=== PATIENT | female | born 1985 | race Caucasian/White ===

== ENCOUNTER → 2019-08-30 | Day surgery (SDC) | payer OTHER ==
[~2019-08-30] MED LIST: CYAN50008 PO; DILT180C2 PO; DULO20CA50 PO; GABA600T7 PO; HYDR-2145 PO; HYOS0.1222 PO; IV RINGERS SOLUTION,LACTATED 1,000 ML IV SCH; LOSA25TA PO; MV-M1TAB7 PO; ONDANSETRON PF 4 MG/2 ML VIAL. IV PRN; PROPOFOL 10,000 MCG/ML (20ML) VIAL IV ONE; ZOLP6.252 PO
[2019-08-30 09:55] VITALS: BP 117/68
--- NOTE | 2019-08-31 17:06 | PATHOLOGY ---
[facility] Accession Number: [id number] . 01 Material submitted: . PART A: duodenum - RANDOM DUODENUM BIOPSY PART B: stomach - RANDOM GASTRIC BIOPSY PART C: colon - RANDOM COLON BIOPSY . 02 Diagnosis: A. Duodenal and small intestine mucosa, random duodenal biopsies: - No significant pathologic abnormalities. . B. Gastric antral and gastric body mucosa, random gastric biopsies: - Very mild chronic gastritis. . C. Colonic mucosa, random colon biopsies: - No significant pathologic abnormalities. (JPM:mary alice; 08/31/2019) [facility] 08/31/2019 0944 Local . 02 Comment: Sections of the random duodenal biopsy reveal segments of duodenal and small intestine mucosa. Where best oriented, the mucosal villi show no sprue-like changes or significant inflammatory changes. . Sections of the random gastric biopsy reveal segments of gastric antral and gastric body mucosa. The gastric body mucosa shows focal superficial mucosal congestion and minimal chronic inflammation. The gastric antral mucosa shows congestion and very mild chronic inflammation. A properly controlled immunoperoxidase stain for Helicobacter is negative for Helicobacter organisms. . Sections of the random colon biopsy reveal multiple segments of colonic mucosa containing multiple, focally hyperplastic, mucosal-associated lymphoid aggregates. There is no evidence of a chronic destructive colitis, lymphocytic colitis, or collagenous colitis. (JPM:amry alice; 08/31/2019) . . Special stain performed: Immunoperoxidase stain for Helicobacter on B1 . Electronically signed: . Sherif Samuel MD, Pathologist NPI- [id number] . 01 Gross description: . A. The specimen is received in formalin labeled "Tullius, Patricia, random duodenum DX celiac" and consists of multiple fragments of cortes-brown tissue measuring 1.7 x 0.6 x 0.2 cm in aggregate which are entirely submitted in A1. . B. The specimen is received in formalin labeled "Tullius, Patricia, random gastric" and consists of multiple fragments of cortes brown tissue measuring 2.1 x 0.5 x 0.2 cm in aggregate which are entirely submitted in B1. . C. The specimen is received in formalin labeled "Tullius, Patricia, random colon BX" and consists of multiple fragments of cortes-brown tissue measuring 1.9 x 0.6 x 0.2 cm in aggregate which are entirely submitted in C1. (DAVONTE; 08/30/2019) JFQ/JFQ 08/30/2019 1742 Local . 02 Pathologist provided ICD-10: K29.50, R19.7 . 02 CPT . 630857, 471153, 439044, [id number] Specimen Comment: A courtesy copy of this report has been sent to [phone], [phone]- Specimen Comment: [id number] Specimen Comment: Report sent to / DR COURTNEY Performed at: 01 [facility] [address], [place] [id number] MD Nestor Cowan MD Phone: [phone] Performed at: 02 [facility] [address] [place], [place] [id number] MD Sherif Samuel MD Phone: [phone]
== END | disposition home or self-care (01) ==
LOC: SURG 07:31
PROVIDERS: ATTEND Internal Medicine Gastroenterology
DX: K52.9 Noninfective gastroenteritis and colitis, unspecified (principal); K21.9 Gastro-esophageal reflux disease without esophagitis; K29.50 Unspecified chronic gastritis without bleeding; K63.89 Other specified diseases of intestine; E66.9 Obesity, unspecified; E78.00 Pure hypercholesterolemia, unspecified; I10 Essential (primary) hypertension; Z79.899 Other long term (current) drug therapy; Z90.710 Acquired absence of both cervix and uterus; Z90.49 Acquired absence of other specified parts of digestive tract; Z87.442 Personal history of urinary calculi; Z68.30 Body mass index [BMI] 30.0-30.9, adult
CPT/HCPCS: 43239; 45380; 88305; 88342; J2704; U0003-CS

== ENCOUNTER → 2021-02-05 | Outpatient (CLI) | payer OTHER ==
[2019-08-30 09:55] VITALS: BP 117/68
[~2021-02-05] MED LIST changes: -CYAN50008 PO; +CYAN50009 PO; -IV RINGERS SOLUTION,LACTATED 1,000 ML IV SCH; -ONDANSETRON PF 4 MG/2 ML VIAL. IV PRN; -PROPOFOL 10,000 MCG/ML (20ML) VIAL IV ONE
--- NOTE | 2021-02-05 09:57 | RAD ---
CT MAXILLOFACIAL WITHOUT CONTRAST DATE: 02/05/2021 9:20 AM INDICATION: RECURRENT SINUSITIS . COMPARISON: None. TECHNIQUE: CT images of the paranasal sinuses were obtained without intravenous contrast. Coronal and sagittal reformatted images were performed at a separate workstation and reviewed. One or more of th e following dose reduction techniques were utilized: Automated exposure control (AEC), Adjustment of mA and/or kV according to patient size, Use of iterative reconstruction technique such as ASiR, CT sc an done according to ALARA and image gently/image wisely FINDINGS: The maxillary, ethmoid, sphenoid, and frontal sinuses are clear. No air-fluid levels. No significant mucoperiosteal thickening. The osteomeatal units are patent. Bilateral maddison bullosa. No significan t nasal septal deviation. The visualized osseous structures are otherwise normal. The visualized orbits and globes are normal. The visualized brain parenchyma is normal in attenuation. IMPRESSION: No evidence of inflammatory sinonasal disease. Electronically signed by: Kamran Rabago MD (02/05/2021 9:55 AM) [facility]
== END ==
LOC: CT 08:54
PROVIDERS: ATTEND Otolaryngology
DX: J32.9 Chronic sinusitis, unspecified (principal)
CPT/HCPCS: 70486

== ENCOUNTER → 2021-05-15 | Outpatient (CLI) | payer OTHER ==
[2019-08-30 09:55] VITALS: BP 117/68
[~2021-05-15] MED LIST changes: +IOHEXOL 350 MG/ML 100 ML VIAL. ONE
--- NOTE | 2021-05-15 10:53 | RAD ---
CTA chest with contrast dated 05/15/2021. COMPARISON: None. Clinical data indication: Cough. FINDINGS: Contiguous axial imaging the chest performed following the intravenous administration of 100 cc Omnip aque 350. Study was performed as dedicated PE protocol with thin cut coronal MIPS 3-D reconstruction. One or more of the following individualized dose reduction techniques were utilized for this examinat ion: 1. Automated exposure control 2. Adjustment of the mA and/or kV according to patient size 3. Use of iterative reconstruction technique. FINDINGS: Contrast bolus is adequate. No evidence of central, lobar or segmental pulmonary embolus. Subsegmenta l branches not well evaluated. Heart size is mildly enlarged. No pericardial effusion. No mediastinal, hilar or axillary lymphadenop athy. Thyroid gland unremarkable. Central airways are patent. Mild patchy groundglass opacity throughout both lungs, nonspecific. No co nsolidation or pleural effusion. No pneumothorax. Images of the upper abdomen are unremarkable. Scattered diverticula throughout the colon. No acute steve ny abnormality. Mild multilevel spondylosis. IMPRESSION: 1. No evidence of central, lobar or segmental pulmonary embolus. 2. Mild patchy groundglass opacity throughout both lungs, nonspecific. 3. Mild cardiomegaly. 4. Diverticulosis. Electronically signed by: Milad Avila MD (05/15/2021 10:50 AM) [facility]
== END ==
LOC: CT 09:37
PROVIDERS: ATTEND Internal Medicine
DX: I51.7 Cardiomegaly (principal); K57.30 Diverticulosis of large intestine without perforation or abscess without bleeding; M47.819 Spondylosis without myelopathy or radiculopathy, site unspecified
CPT/HCPCS: 71275; Q9967

== ENCOUNTER → 2021-05-20 | Outpatient (CLI) | payer OTHER ==
[2019-08-30 09:55] VITALS: BP 117/68
[~2021-05-20] MED LIST changes: -IOHEXOL 350 MG/ML 100 ML VIAL. ONE
--- NOTE | 2021-05-20 10:09 | RAD ---
EXAM: Abdomen and pelvis CT without intravenous contrast. HISTORY: Gross hematuria. Right flank pain. TECHNIQUE: Computed tomographic images of the abdomen and pelvis were obtained without contrast. Mult iplanar reformatting was performed. *One or more of the following individualized dose reduction techniques were utilized for this examina tion: 1. Automated exposure control. 2. Adjustment of the mA and/or kV according to patient size. 3. Use of iterative reconstruction technique. COMPARISON: None. FINDINGS: Evaluation of the lower thorax demonstrates no infiltrate or pleural effusion. No hepatic l esion is seen. The gallbladder is surgically absent. The pancreas, spleen and adrenal glands are unre markable. The stomach is unremarkable. The appendix is prominent in caliber, measuring 6 mm. There ar e no secondary findings to suggest acute appendicitis. There is colonic diverticulosis. There is no diverticulitis. There is a 4 mm nonobstructing stone wit hin the superior left kidney. There is no obstructing renal or ureteral stone. There is no hydronephr osis. The bladder is unremarkable. There are few left pelvic phleboliths. The uterus is absent. The o varies are unremarkable. The aorta is normal in caliber. There is no lymphadenopathy. There is no acu te or suspicious osseous finding. IMPRESSION: 1. 4 mm nonobstructing left renal stone. 2. Colonic diverticulosis. Electronically signed by: Xochitl Ibrahim MD (05/20/2021 10:07 AM) [id number]
== END ==
LOC: CT 08:36
PROVIDERS: ATTEND Internal Medicine
DX: N20.0 Calculus of kidney (principal); K57.30 Diverticulosis of large intestine without perforation or abscess without bleeding; R31.9 Hematuria, unspecified; Z90.49 Acquired absence of other specified parts of digestive tract; Z90.710 Acquired absence of both cervix and uterus
CPT/HCPCS: 74176

== ENCOUNTER → 2021-07-01 | Outpatient (CLI) | payer OTHER ==
[2019-08-30 09:55] VITALS: BP 117/68
[~2021-07-01] MED LIST changes: +IOHEXOL 350 MG/ML 100 ML VIAL. IV ONE
--- NOTE | 2021-07-01 10:27 | RAD ---
EXAM: Abdomen and pelvis CT with and without intravenous contrast. HISTORY: Hematuria. TECHNIQUE: Computed tomographic images of the abdomen and pelvis were obtained prior to and following the administration of intravenous contrast. Multiplanar reformatting was performed. *One or more of the following individualized dose reduction techniques were utilized for this examina tion: 1. Automated exposure control. 2. Adjustment of the mA and/or kV according to patient size. 3. Use of iterative reconstruction technique. COMPARISON: 05/20/2021. FINDINGS: Evaluation of the lower thorax demonstrates no infiltrate or pleural effusion. There is a s mall focus of fatty infiltration of the liver along the falciform ligament. No suspicious hepatic les ion is seen. The gallbladder is surgically absent. The pancreas, spleen and adrenal glands are unrema rkable. There is a stable 3 mm nonobstructing stone within the upper mid zone of the left kidney. There is no hydronephrosis. There is a 5 mm simple cyst within the lateral upper mid zone of the left kidney. No suspicious solid renal lesion is seen. There is a slightly asymmetrically prominent right renal jarett ecting system, likely due to the hydration status of the patient. No urothelial lesion is seen. The b ladder is unremarkable. The uterus is absent. The ovaries are unremarkable. There is a prominent appendix caliber, stable in appearance. There is no acute appendicitis. There is colonic diverticulosis. There is no convincing d iverticulitis. The aorta is normal in caliber. There is no lymphadenopathy. There is no acute or susp icious osseous finding. IMPRESSION: 1. Stable 3 mm nonobstructing left renal stone. There is no evidence of obstructive uropathy. 2. Stable 5 mm simple left renal cyst. Follow-up is not routinely performed for simple cysts. 3. No suspicious urothelial lesion. 4. Colonic diverticulosis. Electronically signed by: Xochitl Ibrahim MD (07/01/2021 10:25 AM) [facility]
== END ==
LOC: CT 09:01
PROVIDERS: ATTEND Specialist
DX: N20.0 Calculus of kidney (principal); N28.1 Cyst of kidney, acquired; R31.1 Benign essential microscopic hematuria; K57.30 Diverticulosis of large intestine without perforation or abscess without bleeding; K76.0 Fatty (change of) liver, not elsewhere classified; Z90.49 Acquired absence of other specified parts of digestive tract
CPT/HCPCS: 74178; Q9967